=== PATIENT | male | born 1995 | race Caucasian/White ===

== ENCOUNTER 2023-04-30 07:28 | Emergency (ER) | payer BC, OTHER ==
[2023-04-30] MEDS ORDERED: methylPREDNISolone Sod Succ/PF 125 MG/2 ML VIAL ONE (08:10)
== END 2023-04-30 08:17 | disposition home or self-care (01) ==
LOC: CSHERS 07:28
DX: T78.40XA Allergy, unspecified, initial encounter (principal); J45.909 Unspecified asthma, uncomplicated
CPT/HCPCS: 96372; 99283; J2930